=== PATIENT | female | born 1995 | race Hispanic/Latino ===

== ENCOUNTER 2016-12-10 22:20 | Emergency (ER) | payer MEDICAID, OTHER ==
[2016-12-10 22:50] LABS: #Eosinphils 0.1 thou/uL (0.0-0.7); #Lymphocytes 2.1 thou/uL (1.20-3.40); #Monocytes 0.5 thou/uL (0.11-0.59); #Neutrophils 5.6 thou/uL (1.40-6.50); %Basophils 0.4 % (0.0-1.0); %Eosinophils 1.1 % (0.0-10.0); %Lymphocytes 25.3 % (28.0-48.0); %Monocytes 5.8 % (0.0-4.0); Hematocrit 41.3 % (36.0-47.0); Red Blood Cell (RBC) Count 4.71 mill/uL (4.00-5.20); White Blood Cell (WBC) Count 8.3 thou/uL (4.8-10.8)
[2016-12-10 22:50] LABS: Bilirubin Negative (Negative); Blood, Urine Negative (Negative); Glucose, Urine (Dipstick) Negative (Negative); Ketone, Urine Negative (Negative); Nitrite Negative (Negative); Protein, Urine (Dipstick) Trace mg/dL (Neg-Trace)
[2016-12-10 22:55] LABS: Bacteria/HPF 4+ HPF (None Seen); RBC/HPF 0-3 HPF (0-3)
[2016-12-10 23:05] LABS: ALT (SGPT) 13 U/L (8-55); AST (SGOT) 14 U/L (5-34); Alkaline Phosphatase 111 U/L (40-150); Anion Gap 12 mmol/L (10-20); BUN (Urea Nitrogen) 11 mg/dL (7.0-18.7); Calc. Creatinine Clearance 0 mL/min (70-130); Calcium 9.2 mg/dL (7.8-10.44); Carbon Dioxide 24 mmol/L (22-29); Chloride 104 mmol/L (98-107); Estimated GFR-MDRD 85; Globulin 3.5 g/dL (2.4-3.5); Lipase 45 U/L (8-78); Protein, Total 7.5 g/dL (6.0-8.3)
[2016-12-10 23:07] LABS: Hyaline Casts/LPF 0-3 HYALINE CAST LPF (0-3 Hyaline)
--- NOTE | 2016-12-10 23:58 | ULT ---
GALLBLADDER ULTRASOUND: History: 21-year-old female with right upper quadrant pain for one day with nausea. FINDINGS: The gallbladder is contracted and mostly obscured, possibly related to physiologic contraction since the patient recent ate. Common bile duct 0.4 cm. No intrahepatic ductal dilatation. The visualized liver, pancreas, and right kidney are unremarkable. IMPRESSION: Small contracted gallbladder without overt gallstones, possibly of physiologic origin since the ava ent recently ate. If the patient has continued unexplained right upper quadrant pain, a follow up ul trasound examination after the patient has been NPO for at least 12 hours, might be a consideration. POS: JULITA
[2016-12-11] MEDS ORDERED: cefTRIAXone\\ROCEPHIN 1 GM VIAL ONE (00:02)
== END 2016-12-11 00:45 | disposition home or self-care (01) ==
LOC: ERS 22:20
DX: K29.70 Gastritis, unspecified, without bleeding (principal); N39.0 Urinary tract infection, site not specified
CPT/HCPCS: 36415; 76705; 80053; 81003; 81015; 81025; 83690; 85025; 96365; J0696

== ENCOUNTER 2017-01-10 21:44 | Emergency (ER) | payer OTHER, SELFPAY | END 2017-01-10 23:03 | disposition home or self-care (01) | LOC: ERS 21:44 | DX: J03.00 Acute streptococcal tonsillitis, unspecified (principal) | CPT/HCPCS: 87430; 99283 ==

== ENCOUNTER 2018-05-08 06:35 | Emergency (ER) | payer SELFPAY ==
[2018-05-08] MEDS ORDERED: Acetaminophen 500 MG TAB ONE (06:56)
[2018-05-08] MEDS ORDERED: Ketorolac Tromethamine 60 MG/2 ML VIAL ONE (07:42)
--- NOTE | 2018-05-08 07:52 | RAD ---
CHEST 2 VIEWS: Date: 05/08/09 HISTORY: Fever. COMPARISON: None. FINDINGS: Normal cardiac silhouette. Lungs and pleural spaces are clear. No pneumothorax or osseous abnormaliti es. IMPRESSION: No acute cardiopulmonary process. POS: CET
[2018-05-08 08:00] LABS: Bilirubin Moderate (Negative); Blood, Urine Large (Negative); Clarity CLOUDY (Clear); Glucose, Urine (Dipstick) Negative (Negative); Leukocyte Small (Negative); Nitrite Negative (Negative); Protein, Urine (Dipstick) 30 mg/dL (Neg-Trace)
[2018-05-08 08:01] LABS: Bacteria/HPF None Seen HPF (None Seen); RBC/HPF GREATER THAN 50-TNTC HPF (0-3)
[2018-05-08 08:15] LABS: Pathc Cast-AUWi Flag 6.97 (0-2.49)
[2018-05-08 08:16] LABS: Hyaline Casts/LPF 0-3 HYALINE CAST LPF (0-3 Hyaline); Renal Epithelial 0-3 HPF (0-3); Transitional Epithelial 0-3 HPF (0-3)
[2018-05-08 08:17] LABS: Manual Microscopic Reviewed? No Path Casts Seen; Pregnancy Test - Urine (BHCG) Negative (Negative); Pregu Control Background? CLEAR/WHITE (CLR/WHITE); Pregu Control Bar Appear? YES (CONTROL BAR)
== END 2018-05-08 08:54 | disposition home or self-care (01) ==
LOC: ERS 06:35
DX: J10.1 Influenza due to other identified influenza virus with other respiratory manifestations (principal)
CPT/HCPCS: 71046; 81003; 81015; 81025; 87804; 96372; J1885

== ENCOUNTER 2019-09-13 17:25 | Observation (INO) | payer OTHER, SELFPAY ==
[2019-09-13 18:00] LABS: #Basophils 0.1 thou/uL (0.0-0.2); #Eosinphils 0.1 thou/uL (0.0-0.7); #Lymphocytes 1.8 thou/uL (1.20-3.40); #Monocytes 0.6 thou/uL (0.11-0.59); #Neutrophils 6.5 thou/uL (1.40-6.50); %Basophils 0.7 % (0.0-1.0); %Eosinophils 0.8 % (0.0-10.0); %Lymphocytes 19.4 % (21.0-51.0); %Monocytes 6.8 % (0.0-10.0); %Neutrophils 72.4 % (42.0-75.0); Hemoglobin 13.5 g/dL (12.0-16.0); Mean Corpuscular HGB CONC 34.3 g/dL (32.0-36.0); Mean Corpuscular Volume 90.5 fL (78.0-98.0); Mean Platelet Volume 8.6 fL (7.4-10.4); Platelet Count 203 thou/uL (130-400); RBC Distribution Width 12.4 % (11.5-14.5); Red Blood Cell (RBC) Count 4.35 mill/uL (4.20-5.40)
[2019-09-13 19:06] LABS: Bilirubin Negative (Negative); Blood, Urine Large (Negative); Glucose, Urine (Dipstick) Negative (Negative); Ketone, Urine Trace mg/dL (Negative); Leukocyte Trace (Negative); Nitrite Negative (Negative); Protein, Urine (Dipstick) 100 mg/dL (Neg-Trace); Specific Gravity, Urine 1.025 (1.005-1.030); Urobilinogen 0.2 mg/dL (Less than 2); pH, Urine 5.5 (5.0-9.0)
[2019-09-13 19:12] LABS: Clarity Hazy (Clear)
[2019-09-13 19:14] LABS: RBC/HPF Greater than 50 HPF (0-3)
[2019-09-13 19:15] LABS: Bacteria/HPF 2+ HPF (None Seen)
--- NOTE | 2019-09-13 19:20 | ULT ---
Exam: Pelvic ultrasound HISTORY: Positive and vaginal bleeding for one day. Pelvic pain. COMPARISON: None TECHNIQUE: Multiple grayscale and color Doppler images were obtained in a transabdominal and transvag inal pelvic ultrasound. Spectral analysis of the Doppler waveforms of the ovaries were performed. FINDINGS: CERVIX: Not well visualized on this exam. UTERUS AND ENDOMETRIUM: There is a fluid collection seen within the endometrial canal which does not contain a pole or a yolk sac. Mean sac diameter is 1.27 cm which would correspond to a gestational age by ultrasound of 6 weeks and 1 day. RIGHT OVARY: Anechoic cystic lesion measuring 3.5 cm most compatible with a cyst. Arterial and venous flow is documented in the right ovary. LEFT OVARY: Normal flow, without focal mass. Small amount of free fluid is seen in the left adnexa. IMPRESSION: 1. Fluid collection within the endometrial canal. However, no pole or yolk sac is visualized at this time. Gestational age by mean sac diameter would be 6 weeks and 1 day. At least a yolk sac should be visualized at this time. However, findings could be related to an early intrauterine gestat ion. Pseudogestational sac related to ectopic cannot be excluded based on this exam. Follow-up ultrasound examination in one week as well as correlation with quantitative beta hCG level is recommended. 2. Right ovarian cyst. 3. Small amount of free fluid in the left adnexa.
[2019-09-13 21:51] VITALS: BMI 30.2
[2019-09-13] MEDS ORDERED: Zolpidem Tartrate 5 MG TAB PO PRN (22:06)
[2019-09-13] MEDS ORDERED: Ondansetron ODT 4 MG TAB PO PRN (22:06)
[2019-09-13] MEDS ORDERED: Acetaminophen 325 MG TAB PO PRN (22:06)
[2019-09-13] MEDS: Sodium Chloride 0.9% 1,000 ML IV SCH (22:34)
--- NOTE | 2019-09-14 05:49 | HP ---
REASON FOR ADMISSION: Rule out ectopic, low probability by history, exam, ultrasound study, and objective findings. HISTORY OF PRESENT ILLNESS: Ms. Kruger is a 23-year-old 2, para 1, who is approximately 7 weeks gestation by stated LMP. She presents with a small amount of bleeding and cramping today. She reports 2 weeks of intermittent lower abdominal pain that goes from right to left, to center, back to right, back to left, and back to center. She denies nausea or vomiting. She denies passage of tissue. She was seen in the emergency room and noted to have a normal hematocrit, a beta-HCG of 2400, rather unremarkable non clean-catch urine, and vitals that include a pulse in the 80s to low 90s with systolics in the 90s and diastolics in the 60s. Ultrasound was read equivocally by Radiology as a fluid collection within the endometrial canal, which did not contain a pole or yolk sac. Mean sac diameter is 1.27 cm which would correspond with gestational age of 6 weeks and 1 day, a simple cyst in the right adnexum with good flow, normal left adnexum with a small amount of free fluid around it. the radiologist's statement felt that pseudogestational sac related ectopic cannot be excluded based on this exam, and of course, the patient's beta-hCG does not exclude this as well. SAND MILLER HISTORY: x1 with Tatiana Hough. 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 Hough performed a laparoscopy. Apparently, it was torsed and the patient ended up with a right salpingectomy. She denies a history of sexually transmitted diseases. PAST MEDICAL HISTORY: None. PAST SURGICAL HISTORY: Laparoscopy. ALLERGIES: NONE. MEDICATIONS: None. SOCIAL HISTORY: Denies tobacco, alcohol, or drug abuse. FAMILY HISTORY: Noncontributory. REVIEW OF SYSTEMS: Noncontributory. PHYSICAL EXAMINATION: GENERAL: female. VITAL SIGNS: Temperature 98.2, pulse 90, respirations 18, blood pressure 92/ 60. HEENT: Within normal limits. LUNGS: Clear to auscultation bilaterally. HEART: Regular rate and rhythm. ABDOMEN: Soft and nontender with bowel sounds in all 4 quadrants. No rebound. No guarding. No CVA tenderness noted. PELVIC: Exam performed by CRUZ in the ER revealed a small amount of blood. No open os. No tissue. EXTREMITIES: No clubbing, cyanosis, or edema. LABORATORY DATA: Hematocrit of 39%, white count 9000, platelet count of 203. Beta-hCG 2477. Urinalysis had some blood in it, trace leuk esterase, few WBCs, was rather unremarkable. I reviewed the ultrasound pictures myself. Ultrasound reveals a double-ring gestational sac in the uterine fundus, no abnormality of the endocervical canal is noted on the exam by myself. I am very uncertain as to what was noted to be in the endocervical canal is definitely fundal in placement. The gestational sac that may be collapsing with its irregular shape. She also has a simple cyst in the right adnexum measures 3-1/2 cm in greatest diameter. There is no complexity to it. Doppler flow of right and left adnexa looks normal on my scanning of images and there is nothing other than physiological fluid noted around either adnexa. IMPRESSION: Possible normal early gestation versus threatened, missed AB versus ectopic . PLAN: Discussed with the ER physician. The patient is inappropriate at this gestational age with this beta-HCG level for methotrexate administration as this certainly could be a normal . Because of concern for possible ectopic as well as the patient's unattached obstetric status with [facility], we will admit the patient overnight with serial vital signs, serial hematocrits, serial HCGs, and perhaps a repeat ultrasound tomorrow for further evaluation. We will check urine for urine culture. Job ID: [id number] MTDD
[2019-09-14 05:57] LABS: #Basophils 0.1 thou/uL (0.0-0.2); #Eosinphils 0.1 thou/uL (0.0-0.7); #Lymphocytes 2.2 thou/uL (1.20-3.40); #Monocytes 0.5 thou/uL (0.11-0.59); #Neutrophils 4.8 thou/uL (1.40-6.50); %Eosinophils 0.8 % (0.0-10.0); %Lymphocytes 29.2 % (21.0-51.0); %Monocytes 6.6 % (0.0-10.0); %Neutrophils 62.5 % (42.0-75.0); Hemoglobin 12.2 g/dL (12.0-16.0); Mean Corpuscular HGB CONC 33.3 g/dL (32.0-36.0); Mean Corpuscular Hemoglobin 30.2 pg (27.0-31.0); Mean Corpuscular Volume 90.8 fL (78.0-98.0); Mean Platelet Volume 8.6 fL (7.4-10.4); Platelet Count 182 thou/uL (130-400); RBC Distribution Width 12.4 % (11.5-14.5); Red Blood Cell (RBC) Count 4.05 mill/uL (4.20-5.40); White Blood Cell (WBC) Count 7.6 thou/uL (4.8-10.8)
--- NOTE | 2019-09-14 08:23 | PRG ---
DATE OF SERVICE: 09/14/2019 TIME OF SERVICE: 0715 hours. SUBJECTIVE: Ms. Kruger is hospital day #1 admission to rule out ectopic versus missed/threatened AB. She is resting comfortably, reports that she still has mild midline cramping and a small amount of bleeding. She is ambulated to the bathroom several times without syncope or dizziness. OBJECTIVE: VITAL SIGNS: Temperature 98.6, T-max 98.6, pulse 80, respirations 18, and blood pressure 88/53. Of note, the patient's blood pressure has remained in the 80s to 90s systolic and 50s diastolic since admission. LUNGS: Clear to auscultation bilaterally. HEART: Regular rate and rhythm. ABDOMEN: Soft. No rebound. No guarding. She has discomfort with midline palpation. PELVIC: Deferred. EXTREMITIES: Without clubbing, cyanosis, or edema. LABORATORY DATA: The patient had a repeat hematocrit this morning. Hematocrit prehydration was 39.3 with admission and IV rehydration, her hematocrit dropped to 36.8. White count is normal. Platelet count is normal. The patient has a pending beta-hCG. Beta-hCG at 1800 hours yesterday was 2477. IMPRESSION: Likely missed/threatened AB, although early normal or ectopic cannot be completely ruled out. PLAN: Repeat beta-hCG at noon today. We will continue to follow the patient clinically. The patient's clinical presentation is consistent with threatened AB, no evidence of intraperitoneal hemorrhage and physiologic hypotension without pulse response that would indicate intraabdominal hemorrhage. Follow up the beta-hCG and we will check the patient out to Dr. Ashlyn Thomas. May or may not be indication for repeat ultrasound. Job ID: [id number]
[2019-09-14] MEDS: Sodium Chloride 0.9% 1,000 ML IV SCH (08:40)
[2019-09-14 11:30] VITALS: BP 98/57; TEMP 98.3
--- NOTE | 2019-09-14 15:47 | DIS ---
DATE OF ADMISSION: 09/13/2019 DATE OF DISCHARGE: 09/14/2019 DIAGNOSIS: Likely spontaneous . PROCEDURES: Transvaginal ultrasound. HOSPITAL COURSE: The patient was admitted on 09/13/2019 for serial labs and exams to rule out ectopic. The patient initially had presented to the emergency department with spotting and lower abdominal cramping. She was found to have what looks like a gestational sac in the fundus of the uterus, but it was not definitive. Her vitals remained stable throughout her stay. Her hCG level on admission was 2477, less than 24 hours later was 1877, which was more than 25% drop. The patient reported that her cramping was improving, but she still had some spotting. Given the dramatic drop in hCG, it is more consistent with early loss rather than an ectopic . The patient will be discharged and will follow up in 2 days at Clinic for repeat labs and exam. She will be discharged home with precautions. FOLLOWUP: Clinic in 2 days. DIET: Regular. ACTIVITIES: As tolerated. INSTRUCTIONS: Call or return for severe abdominal pain, heavy vaginal bleeding, or other concerns. Job ID: [id number]
== END 2019-09-14 15:35 | disposition home or self-care (01) ==
LOC: ERS 17:25 → 3SW 19:56
PROVIDERS: ADMIT Obstetrics & Gynecology; ATTEND Obstetrics & Gynecology
DX: O26.851 Spotting complicating pregnancy, first trimester (principal); O99.89 Other specified diseases and conditions complicating pregnancy, childbirth and the puerperium; R10.30 Lower abdominal pain, unspecified; O34.81 Maternal care for other abnormalities of pelvic organs, first trimester; N83.291 Other ovarian cyst, right side; Z3A.01 Less than 8 weeks gestation of pregnancy
CPT/HCPCS: 36415; 76856; 81003; 81015; 84702; 85025; 86850; 86900; 86901; 87086; 96360; 96361; G0378

== ENCOUNTER 2019-11-09 14:12 | Emergency (ER) | payer OTHER ==
[2019-11-09] MEDS ORDERED: Ondansetron PF 4 MG/2 ML Vial ONE (14:33)
[2019-11-09 14:51] LABS: #Lymphocytes 1.5 thou/uL (1.20-3.40); #Monocytes 0.5 thou/uL (0.11-0.59); #Neutrophils 5.6 thou/uL (1.40-6.50); %Basophils 0.4 % (0.0-1.0); %Eosinophils 0.4 % (0.0-10.0); %Lymphocytes 19.3 % (21.0-51.0); %Monocytes 6.5 % (0.0-10.0); %Neutrophils 73.4 % (42.0-75.0); Hemoglobin 12.7 g/dL (12.0-16.0); Mean Corpuscular HGB CONC 34.5 g/dL (32.0-36.0); Mean Corpuscular Hemoglobin 30.4 pg (27.0-31.0); Mean Corpuscular Volume 88.2 fL (78.0-98.0); Mean Platelet Volume 8.8 fL (7.4-10.4); Platelet Count 188 thou/uL (130-400); RBC Distribution Width 12.9 % (11.5-14.5); Red Blood Cell (RBC) Count 4.17 mill/uL (4.20-5.40); White Blood Cell (WBC) Count 7.6 thou/uL (4.8-10.8)
[2019-11-09 15:08] LABS: Bacteria/HPF 2+ HPF (None Seen); Bilirubin Negative (Negative); Blood, Urine Negative (Negative); Clarity Turbid (Clear); Glucose, Urine (Dipstick) Normal (Negative); Ketone, Urine Negative (Negative); Leukocyte 500 Leu/uL (Negative); Nitrite Negative (Negative); Protein, Urine (Dipstick) 50 mg/dL (Neg-Trace); Specific Gravity, Urine 1.035 (1.002-1.036); WBC/HPF 21-50 HPF (0-3); pH, Urine 7.5 (5.0-9.0)
[2019-11-09 15:11] LABS: ALT (SGPT) 8 U/L (8-55); AST (SGOT) 13 U/L (5-34); Alkaline Phosphatase 52 U/L (40-110); Anion Gap 14 mmol/L (10-20); BUN (Urea Nitrogen) 10 mg/dL (7.0-18.7); Calc. Creatinine Clearance 0 mL/min (70-130); Carbon Dioxide 21 mmol/L (22-29); Chloride 106 mmol/L (98-107); Estimated GFR-MDRD Greater than 90; Globulin 3.2 g/dL (2.4-3.5); Glucose 84 mg/dL (70-105); Potassium 3.5 mmol/L (3.5-5.1); Protein, Total 7.2 g/dL (6.0-8.3); Sodium 137 mmol/L (136-145)
[2019-11-09] MEDS ORDERED: diphenhydrAMINE 50 MG/ML VIAL ONE (15:49)
[2019-11-09] MEDS ORDERED: Metoclopramide HCl 10 MG/2 ML VIAL ONE (15:49)
== END 2019-11-09 16:28 | disposition home or self-care (01) ==
LOC: ERS 14:12
DX: O23.41 Unspecified infection of urinary tract in pregnancy, first trimester (principal); O21.9 Vomiting of pregnancy, unspecified; O99.341 Other mental disorders complicating pregnancy, first trimester; F41.9 Anxiety disorder, unspecified; Z3A.08 8 weeks gestation of pregnancy
CPT/HCPCS: 80053; 81003; 81015; 84702; 85025; 94760; 96361; 96365; 96375; J1200; J2405; J2765

== ENCOUNTER 2020-01-14 19:23 | Observation (INO) | payer OTHER ==
[2020-01-14] MEDS ORDERED: Ondansetron ODT 4 MG TAB PO PRN (21:33)
[2020-01-14] MEDS ORDERED: Ondansetron PF 4 MG/2 ML Vial IVP PRN (21:33)
--- NOTE | 2020-01-14 21:54 | PDOC.FPRHP ---
- History of Present Illness Chief Complaint: nausea, headache History of Present Illness: 24 yo at 16.5wks direct admission from [facility] complaining of nausea and headache. Patient explains she has had decreased appetite, decreased oral intake, nausea and vomiting since the onset of . She has noticed very m ild improvement the last week or two. Reports vomiting every time she eats or drinks, most recently 2-3 times per day. 2-3 times per week she will notice 1-2 small specs of blood in the vomit. She reports a 10 pound weight loss since the beginning of her . Patient reports a frontal headache for the past 3 days that is constant, blurred vision at rest, dizziness upon standing, dyspnea on exertion, and constipation. Also complains of lower abdominal pain on her right side that comes and goes for the past 2-3 days. Her last bowel movement was one week ago. She denies CP or dysuria. - Allergies/Adverse Reactions Allergies Allergy/AdvReac Type Severity Reaction Status Date / Time No Known Drug Allergies Allergy Verified 09/14/19 00:46 - Home Medications Medication Instructions Recorded Confirmed Type Pnv95/Iron Fum/Folic Acid 1 each PO DAILY 08/11/15 01/15/20 History [ Caplet] HYDROcodone Bit/APAP 5/325 [Dighton] 1 tab PO Q4H PRN #0 tab 08/12/15 01/15/20 Rx Acetaminophen [Tylenol Regular 650 mg PO Q4H PRN tab 09/14/19 01/15/20 Rx Strength] - History PMHx: None PSHx: R sided salpingectomy FHx: maternal uncle-DM Social: denies tobacco, alcohol, or drug use - Review of Systems General: denies: fever/chills Eyes: reports: vision changes ENT: denies: nasal congestion, rhinorrhea Respiratory: reports: shortness of breath. denies: cough, congestion Cardiovascular: denies: chest pain, palpitation, edema Gastrointestinal: reports: nausea, vomiting, constipation, abdominal pain. denies: diarrhea Genitourinary: denies: dysuria Skin: denies: rashes, itching Musculoskeletal: denies: tenderness Neurological: reports: weakness. denies: syncope - Vital signs BP: 99/54 HR: 75 RR: 16 Tmax: 98.1 Pox: 100% on RA Wt: 70kg - Physical Exam Constitutional: NAD HEENT: normocephalic and atraumatic, EOMI, no scleral icterus, grossly normal vision, grossly normal hearing Neck: supple, FROM Heart: RRR, no murmurs/rubs/gallops Lungs: CTAB, no respiratory distress, no wheezing Abdomen: soft, non-tender Musculoskeletal: normal structure, ROM grossly normal Neurological: no focal deficit Skin: no rash/lesions Psychiatric: normal mood and affect, good judgment and insight, intact recent and remote memory FMR H&P: Results - Labs Result Diagrams: 01/15/20 06:05 01/15/20 06:05 FMR H&P: A/P - Plan 24 yo at 16.5 wks complaining of nausea and headache Hyperemesis Gravidum -2L LR at 500mL/hr -thiamine -after completion of LR, switch to 1/2 NS D5 w/KCL at 150mL/hr -zofran and phenergen prn for nausea -NPO -CBC, CMP, TSH, Mg, Phos, UA pending sIUP -Patient reports normal checks so far and denies any complications -Will get records for [facility] in AM PCP: [facility] Code: FULL Dispo: eLOS <48 hours pending fluid resuscitation FMR H&P: Upper Level - Plan Date/Time: 01/14/202153 INeri DO, have evaluated this patient and agree with findings/plan as outlined by pharmacy grad intern resident. Pertinent changes/additions are listed here. 24 yo 16.5 wk sIUP wo sig pmhx n/v since , weight loss of 11lbs vomiting 2-3 times a day with failure of outpt emetics, poor po tolerance. she reports some pre-syncope and fatigue, denies chest pain, vb/d, or dysuria. routine pnc at this point. on my exam she is dry appearing, lungs ctab, heart rrr w/o murmur, abdomen nttp. hyperemesis gravidarum, will obtain labs and IVF rescus, iv anti-emetics. given thiamine now, replace lytes pending labs. admit to pp for monitoring. consider promethazine/steroids if not improved after initial interventions. unlikely secondary cause to HG, UA pending. Addendum - Attending - Attending Attestation Date/Time: 01/15/20 0708 I personally evaluated the patient and discussed the management with Dr. Ant virgen/Aashish. I agree with the History, Examination, Assessment and Plan documented above with any addition or exceptions noted below. see my event note for details.
[2020-01-14 22:11] VITALS: BMI 27.3
[2020-01-14] MEDS: Lactated Ringer's 1,000 ML IV SCH (22:23)
[2020-01-14 22:42] LABS: #Lymphocytes 1.3 thou/uL (1.20-3.40); #Monocytes 0.3 thou/uL (0.11-0.59); %Basophils 0.4 % (0.0-1.0); %Eosinophils 0.4 % (0.0-10.0); %Lymphocytes 19.6 % (21.0-51.0); %Monocytes 4.8 % (0.0-10.0); %Neutrophils 74.9 % (42.0-75.0); Hemoglobin 11.1 g/dL (12.0-16.0); Mean Corpuscular HGB CONC 34.9 g/dL (32.0-36.0); Mean Corpuscular Hemoglobin 31.7 pg (27.0-31.0); Mean Corpuscular Volume 90.8 fL (78.0-98.0); Mean Platelet Volume 8.7 fL (7.4-10.4); Platelet Count 138 thou/uL (130-400); RBC Distribution Width 13.6 % (11.5-14.5); Red Blood Cell (RBC) Count 3.51 mill/uL (4.20-5.40); White Blood Cell (WBC) Count 6.6 thou/uL (4.8-10.8)
[2020-01-14 23:04] LABS: ALT (SGPT) 9 U/L (8-55); AST (SGOT) 11 U/L (5-34); Albumin 3.1 g/dL (3.5-5.0); Alkaline Phosphatase 41 U/L (40-110); Anion Gap 11 mmol/L (10-20); BUN (Urea Nitrogen) 7 mg/dL (7.0-18.7); Bilirubin, Total 0.8 mg/dL (0.2-1.2); Calc. Creatinine Clearance 164 mL/min (70-130); Calcium 8.6 mg/dL (7.8-10.44); Carbon Dioxide 21 mmol/L (22-29); Chloride 107 mmol/L (98-107); Estimated GFR-MDRD Greater than 90; Globulin 2.8 g/dL (2.4-3.5); Glucose 112 mg/dL (70-105); Magnesium 1.6 mg/dL (1.6-2.6); Phosphorus 2.9 mg/dL (2.3-4.7); Potassium 3.4 mmol/L (3.5-5.1); Protein, Total 5.9 g/dL (6.0-8.3); Sodium 136 mmol/L (136-145)
[2020-01-14] MEDS ORDERED: Promethazine 25 MG TAB PO PRN (23:24)
[2020-01-14] MEDS ORDERED: Promethazine HCl 25 MG in Sodium Chloride 0.9% 50 ML IVPB PRN (23:24)
[2020-01-14] MEDS ORDERED: Promethazine HCl 25 MG SUPP PR PRN (23:24)
--- NOTE | 2020-01-15 00:18 | PDOC.EVN ---
Event Note - Event Note Event Note: Case discussed w/ Dr. Zendejas/Fariba. Agree with their H&P unless otherwise stated in the following attestation. 24 yo at 16.5 wk by 12.3 wk US (EDC 06/25/20). Direct admit from [facility] for several week hx of severe nausea/vomiting and a 10-11 lb weight loss since the start of her . She has been unable to keep any thing down PO for several days now. States she has N/V in last but to a lesser degree. Exam remarkable for dry MM. Observation for hyperemesis gravidarum. IV fluids, check electrolytes, PRN zofran and phenegran. Start B6 and unisom.
[2020-01-15] MEDS ORDERED: Magnesium 2 GM/50 ML 2 GM in Premix Bag 1 BAG IVPB SCH (00:45)
[2020-01-15] MEDS ORDERED: Doxylamine 25 MG TAB PO SCH ×2 (00:45→21:00)
[2020-01-15] MEDS ORDERED: pyridOXINE 50 MG (B6) TAB PO SCH ×2 (00:45→09:00)
[2020-01-15] MEDS: Lactated Ringer's 1,000 ML IV SCH (03:24)
[2020-01-15 04:01] LABS: Bilirubin Negative (Negative); Blood, Urine Negative (Negative); Glucose, Urine (Dipstick) Negative (Negative); Ketone, Urine 15 mg/dL (Negative); Leukocyte Negative (Negative); Nitrite Negative (Negative); Protein, Urine (Dipstick) Negative (Neg-Trace); Urobilinogen 0.2 mg/dL (Less than 2)
[2020-01-15 04:40] LABS: Clarity Clear (Clear)
[2020-01-15 04:42] LABS: Specific Gravity, Urine 1.003 (1.005-1.030)
[2020-01-15 06:25] LABS: #Eosinphils 0.1 thou/uL (0.0-0.7); #Lymphocytes 1.7 thou/uL (1.20-3.40); #Monocytes 0.3 thou/uL (0.11-0.59); #Neutrophils 4.5 thou/uL (1.40-6.50); %Basophils 0.4 % (0.0-1.0); %Eosinophils 0.8 % (0.0-10.0); %Lymphocytes 25.7 % (21.0-51.0); %Monocytes 4.9 % (0.0-10.0); %Neutrophils 68.2 % (42.0-75.0); Hemoglobin 10.8 g/dL (12.0-16.0); Mean Corpuscular HGB CONC 35.1 g/dL (32.0-36.0); Mean Corpuscular Hemoglobin 32.2 pg (27.0-31.0); Mean Corpuscular Volume 91.7 fL (78.0-98.0); Mean Platelet Volume 8.7 fL (7.4-10.4); Platelet Count 132 thou/uL (130-400); RBC Distribution Width 13.3 % (11.5-14.5); Red Blood Cell (RBC) Count 3.35 mill/uL (4.20-5.40); White Blood Cell (WBC) Count 6.5 thou/uL (4.8-10.8)
[2020-01-15 06:44] LABS: ALT (SGPT) 11 U/L (8-55); AST (SGOT) 11 U/L (5-34); Alkaline Phosphatase 41 U/L (40-110); Anion Gap 11 mmol/L (10-20); BUN (Urea Nitrogen) 5 mg/dL (7.0-18.7); Calc. Creatinine Clearance 169 mL/min (70-130); Calcium 8.5 mg/dL (7.8-10.44); Carbon Dioxide 22 mmol/L (22-29); Chloride 105 mmol/L (98-107); Estimated GFR-MDRD Greater than 90; Globulin 2.7 g/dL (2.4-3.5); Glucose 63 mg/dL (70-105); Potassium 3.4 mmol/L (3.5-5.1); Protein, Total 5.7 g/dL (6.0-8.3); Sodium 135 mmol/L (136-145)
--- NOTE | 2020-01-15 06:56 | PDOC.FM ---
- Subjective Subjective: No acute overnight events. Continues to feel nauseated. Tolerating small sips of water only this AM. Not dizzy upon sitting up, has not been out of bed to ambulate. Denies vomiting since admission, on zofran. No abdominal pain although endorses R side soreness. Denies urinary symptoms. No BM for 3-4 days. Has not been eating or drinking well for 3-4 days. Headache is improving. - Objective Vital Signs & Weight: Vital Signs (12 hours) Temp Pulse Resp BP BP 01/15/20 05:55 98.5 F 71 16 92/50 L 01/15/20 00:05 98.4 F 87 15 90/50 L 01/14/20 19:10 98.1 F 75 16 99/54 L Weight Weight 69.853 kg I&O: 01/13/20 01/14/20 01/15/20 06:59 06:59 06:59 Intake Total 2152 Balance 2152 Result Diagrams: 01/15/20 06:05 01/15/20 06:05 Phys Exam - Physical Examination Constitutional: NAD HEENT: moist MMs, sclera anicteric Neck: supple Respiratory: no wheezing, no rales, no rhonchi, clear to auscultation bilateral Cardiovascular: no significant murmur mild tachycardia Gastrointestinal: soft, non-tender, no distention, positive bowel sounds Musculoskeletal: no edema, pulses present Neurological: non-focal, moves all 4 limbs Psychiatric: normal affect, A&O x 3 Skin: no rash Dx/Plan - Plan Plan: 24 yo at 16.5 wks complaining of nausea and headache Hyperemesis Gravidum Given 2L LR at 500mL/hr, now on LR @ 120 cc/h -thiamine -zofran and phenergen prn for nausea -NPO -Labs wnl except as noted below sIUP -Patient reports normal checks so far and denies any complications -Will get records for [facility] in AM Normocytic Anemia in Hgb 10.8 this AM, slightly down from admission likely 2/2 hemodilution with IV fluids. - continue to monitor - may need iron supplementation when tolerating PO intake - check iron studies Hypokalemia Mild, 3.4. Will replete when tolerating PO intake. PCP: [facility] Code: FULL Dispo: eLOS <48 hours pending fluid resuscitation Addendum - Attending - Attending Attestation Date/Time: 01/15/20 [id number] I personally evaluated the patient and discussed the management with resident team I agree with the History, Examination, Assessment and Plan documented above with any addition or exceptions noted below. Patient improving with scheduled medications. Will make some minor changes to regiment due to some persistent nausea. Lena promethazine CT q 8 hours and will add Remoron qhs to help also with appetite. Able to tolerate some of breakfast this AM. Will re-evaluate at 1600. Tonio
[2020-01-15] MEDS ORDERED: Lactated Ringer's 1,000 ML IV SCH (07:00)
[2020-01-15] MEDS ORDERED: Sodium Chloride 0.9% 20 ML ONE (07:48)
[2020-01-15] MEDS ORDERED: Prenatal Vitamin 1 TAB PO SCH (09:00)
[2020-01-15] MEDS ORDERED: Ondansetron ODT 4 MG TAB PO SCH (12:00)
[2020-01-15] MEDS ORDERED: Acetaminophen 500 MG TAB PO PRN (12:51)
[2020-01-15] MEDS ORDERED: Mirtazapine 15 MG TAB PO SCH (13:00)
[2020-01-15] MEDS ORDERED: Promethazine HCl 25 MG SUPP PR SCH (14:00)
[2020-01-15 16:21] VITALS: TEMP 98.7
[2020-01-15 16:53] VITALS: BP 89/54
[2020-01-15 17:49] LABS: SARS-CoV-2 MS2 Positive; SARS-CoV-2 N Gene Positive; SARS-CoV-2 S Gene Positive; SARS-CoV-2 by NAA DETECTED (NotDetected); SARS-CoV-2 orf1ab Positive
[2020-01-16] MEDS ORDERED: Mirtazapine 15 MG TAB PO SCH (21:00)
--- NOTE | 2020-01-18 09:00 | DIS ---
DATE OF ADMISSION: 01/14/2020 DATE OF DISCHARGE: 01/15/2020 ADMITTING ATTENDING: Jeronimo Robledo MD DISCHARGE ATTENDING: Emi Giang MD RESIDENT: Leanne Powell DO CONSULTS: None. PROCEDURES: None. PRIMARY DIAGNOSIS: Hyperemesis gravidarum. SECONDARY DIAGNOSES: Single intrauterine , normocytic anemia, hypokalemia, COVID positive. DISCHARGE MEDICATIONS: 1. Tylenol 650 mg p.o. q.4 hours p.r.n. 2. vitamin 1 tab p.o. daily. 3. Mirtazapine 15 mg p.o. at bedtime. 4. Unisom 25 mg p.o. at bedtime. 5. Pyridoxine 25 mg p.o. b.i.d. 6. Zofran 4 mg p.o. q.6 hours. 7. Omeprazole 20 mg p.o. daily p.r.n. 8. Promethazine 25 mg per rectum q.8 hours p.r.n. Discontinued medications: 1. caplet. 2. Hydrocodone 5/325. HISTORY OF PRESENT ILLNESS/HOSPITAL COURSE: This is a 24-year-old, G3, P1-0-1-1, at 16.5 weeks of , who was brought to the hospital as a direct admission from the clinic for symptoms of nausea, headache, dizziness, inability to tolerate p.o. intake with associated history of frequent nausea and vomiting since the beginning of and a 10-pound weight loss since she began in September. On admission, she was fluid resuscitated with 2 L of lactated Ringer's and then switched to lactated Ringer's at 120 cc/h. She was started on thiamine, Zofran, and Phenergan to control her nausea and kept n.p.o. until she was able to tolerate small amount of food. With treatment of her nausea, she was able to tolerate p.o. intake, and her borderline blood pressures resolved. She was prepared for discharge. Upon discharge, it was noted that her admission screen for COVID returned positive. She was otherwise asymptomatic and was instructed to quarantine at home for 14 days. Labs during this admission included a CBC revealing a hemoglobin of 10.8. This is likely normocytic anemia of , particularly after hemodilution with IV fluids. However, she may need to have this continued to be monitored in the outpatient setting to see if she will require iron supplementation. DISPOSITION: Stable. DISCHARGE INSTRUCTIONS: 1. Location: Home. 2. Diet: As tolerated. 3. Activity: As tolerated. Instructed to quarantine at home for 14 days due to positive COVID screen. 4. Follow up with your provider at the clinic within the next one week. Job ID: [id number] MTDD
== END 2020-01-15 17:50 | disposition home health service (06) ==
LOC: INTOOBSV 20:18 → 3SW 20:18
PROVIDERS: ADMIT Emergency Medicine; ATTEND Emergency Medicine
DX: O98.512 Other viral diseases complicating pregnancy, second trimester (principal); U07.1 COVID-19; O21.0 Mild hyperemesis gravidarum; O99.012 Anemia complicating pregnancy, second trimester; D64.9 Anemia, unspecified; O99.891 Other specified diseases and conditions complicating pregnancy; R51.9 Headache, unspecified; Z3A.16 16 weeks gestation of pregnancy
CPT/HCPCS: 36415; 80053; 81001; 83735; 84100; 84443; 85025; 87635; 96365; 96367; 96375; G0378; J2405; J3411; J3475; Q0162; U0003

== ENCOUNTER 2021-02-15 16:23 | Emergency (ER) | payer OTHER, MEDICAID ==
[2021-02-15] MEDS ORDERED: Acetaminophen 500 MG TAB ONE (18:19)
[2021-02-15] MEDS ORDERED: Ibuprofen 200 MG TAB ONE ×2 (18:19→18:20)
== END 2021-02-15 18:22 | disposition home or self-care (01) ==
LOC: ERS 16:23
DX: H66.92 Otitis media, unspecified, left ear (principal)
CPT/HCPCS: 99282

== ENCOUNTER 2023-08-25 00:41 | Observation (INO) | payer OTHER, SELFPAY ==
[2023-08-25 01:58] LABS: #Basophils Less than 0.03 10x3/uL (0.0-0.2); %Basophils 0.2 % (0.0-1.0); %Eosinophils 0.4 % (0.0-10.0); %Lymphocytes 12.1 % (21.0-51.0); %Monocytes 6.7 % (0.0-10.0); %Neutrophils 80.5 % (42.0-75.0); Hemoglobin 11.8 g/dL (12.0-16.0); Mean Corpuscular HGB CONC 32.8 g/dL (32.0-36.0); Mean Corpuscular Hemoglobin 27.5 pg (27.0-31.0); Mean Corpuscular Volume 83.9 fL (78.0-98.0); Mean Platelet Volume 11.6 fL (7.4-10.4); Platelet Count 224 10x3/uL (130-400); RBC Distribution Width 14.4 % (11.5-14.5); Red Blood Cell (RBC) Count 4.29 mill/uL (4.20-5.40)
[2023-08-25 02:41] LABS: Anion Gap 13 mmol/L (10-20); BUN (Urea Nitrogen) 8 mg/dL (7.0-18.7); Calc. Creatinine Clearance 0 mL/min (70-130); Carbon Dioxide 20 mmol/L (22-29); Chloride 108 mmol/L (98-107); Potassium 3.5 mmol/L (3.5-5.1); Sodium 137 mmol/L (136-145)
[2023-08-25 02:42] LABS: ALT (SGPT) 19 U/L (8-55); AST (SGOT) 17 U/L (5-34); Albumin 3.4 g/dL (3.5-5.0); Alkaline Phosphatase 51 U/L (40-110); Bilirubin, Total 0.7 mg/dL (0.2-1.2); Estimated GFR 111; Globulin 3.6 g/dL (2.4-3.5); Glucose 92 mg/dL (70-105)
[2023-08-25 02:47] LABS: Bacteria/HPF 2+ HPF (None Seen); Bilirubin Negative (Negative); Blood, Urine Negative (Negative); CAUTI Indications for Culture Pelvic or flank pain; Clarity Turbid (Clear); Glucose, Urine (Dipstick) Normal (Negative); Ketone, Urine Negative (Negative); Leukocyte 500 Leu/uL (Negative); Nitrite Negative (Negative); Protein, Urine (Dipstick) 70 mg/dL (Neg-Trace); Specific Gravity, Urine 1.027 (1.002-1.036); pH, Urine 7.5 (5.0-9.0)
[2023-08-25 02:48] LABS: Pregnancy Test - Urine (BHCG) Negative (Negative); Pregu Control Background? CLEAR/WHITE (CLR/WHITE); Pregu Control Bar Appear? YES (CONTROL BAR); Specific Gravity 1.027 (1.002-1.036); Urine Culture Reflex No No
[2023-08-25] MEDS ORDERED: Morphine 4 MG/ML VIAL ONE (04:23)
[2023-08-25] MEDS ORDERED: Ondansetron PF 4 MG/2 ML Vial ONE (04:23)
[2023-08-25 04:54] LABS: Lipase 50 U/L (8-78); Magnesium 1.8 mg/dL (1.6-2.6)
[2023-08-25 04:59] LABS: Troponin I Less than 0.010 ng/mL (< 0.028)
[2023-08-25] MEDS ORDERED: cefTRIAXone (ROCEPHIN) 2 GM VIAL ONE (04:59)
[2023-08-25] MEDS ORDERED: fentaNYL 50 mcg/mL 1 mL Vial ONE (06:17)
[2023-08-25] MEDS ORDERED: Enoxaparin 40 MG (0.4 mL) SYRINGE ONE (07:26)
[2023-08-25] MEDS ORDERED: Enoxaparin 30 MG (0.3 mL) SYRINGE ONE (07:26)
[2023-08-25] MEDS ORDERED: Ondansetron PF 4 MG/2 ML Vial IVP PRN (08:22)
[2023-08-25] MEDS ORDERED: Ondansetron ODT 4 MG TAB PO PRN (08:22)
[2023-08-25] MEDS ORDERED: Calcium Carbonate 500 MG ChewTAB PO PRN (08:22)
[2023-08-25] MEDS ORDERED: Morphine 2 MG/ML VIAL ONE (08:25)
[2023-08-25] MEDS ORDERED: Polyethylene Glycol 3350 17 GM Packet PO PRN (08:25)
[2023-08-25] MEDS: Morphine 2 MG/ML VIAL SLOW IVP PRN (08:30)
[2023-08-25 08:31] VITALS: BMI 29.2
[2023-08-25] MEDS ORDERED: Magnesium 2 GM/50 ML(in water) 2 GM in Premix 1 BAG IVPB SCH (08:45)
[2023-08-25] MEDS ORDERED: Iopamidol 370 76% 100 ML VIAL ONE (09:01)
[2023-08-25] MEDS: Enoxaparin 80 MG (0.8 mL) SYRINGE SC SCH (09:47)
[2023-08-25] MEDS ORDERED: Potassium Chloride 20 MEQ TAB ONE (09:52)
[2023-08-25] MEDS ORDERED: predniSONE 20 MG TAB ONE (09:53)
[2023-08-25] MEDS ORDERED: Senokot S 8.6-50 MG TAB ONE (09:53)
[2023-08-25] MEDS ORDERED: Famotidine 20 MG TAB ONE (09:53)
[2023-08-25] MEDS ORDERED: NS 0.9% w/ 20 MEQ KCL 1,000 ML ONE (09:54)
[2023-08-25] MEDS: Famotidine 20 MG TAB PO SCH (09:58)
[2023-08-25] MEDS: predniSONE 20 MG TAB PO SCH (09:58)
[2023-08-25] MEDS: NS 0.9% w/ 20 MEQ KCL 1,000 ML/1,000 ML BAG IV SCH (09:58)
[2023-08-25] MEDS: Potassium Chloride 20 MEQ TAB PO SCH (09:58)
[2023-08-25] MEDS: Senokot S 8.6-50 MG TAB PO SCH (09:58)
[2023-08-25] MEDS ORDERED: HYDROcodone/Acetaminophen 5/325 mg Tablet ONE (10:31)
[2023-08-25] MEDS: HYDROcodone/Acetaminophen 5/325 mg Tablet PO PRN (10:34)
[2023-08-25] MEDS ORDERED: Potassium Chloride 20 MEQ TAB PO SCH (17:00)
[2023-08-25] MEDS: Acetaminophen 325 MG TAB PO PRN (21:23)
[2023-08-26 06:27] LABS: Anion Gap 11 mmol/L (10-20); BUN (Urea Nitrogen) 6 mg/dL (7.0-18.7); Calc. Creatinine Clearance 155 mL/min (70-130); Calcium 8.6 mg/dL (7.8-10.44); Carbon Dioxide 21 mmol/L (22-29); Chloride 110 mmol/L (98-107); Estimated GFR 124; Glucose 107 mg/dL (70-105); Magnesium 1.8 mg/dL (1.6-2.6); Potassium 3.5 mmol/L (3.5-5.1); Sodium 138 mmol/L (136-145)
[2023-08-26] MEDS: cefTRIAXone\\ROCEPHIN 1 GM in Sodium Chloride 0.9% 100 ML IVPB SCH (09:07)
[2023-08-26] MEDS: predniSONE 20 MG TAB PO SCH (09:31)
[2023-08-26 10:11] LABS: #Basophils Less than 0.03 10x3/uL (0.0-0.2); #Eosinphils Less than 0.03 10x3/uL (0.0-0.7); %Basophils 0.1 % (0.0-1.0); %Eosinophils 0.3 % (0.0-10.0); %Lymphocytes 16.4 % (21.0-51.0); %Monocytes 10.1 % (0.0-10.0); %Neutrophils 72.8 % (42.0-75.0); Hematocrit 29.8 % (36.0-47.0); Hemoglobin 9.7 g/dL (12.0-16.0); Mean Corpuscular HGB CONC 32.6 g/dL (32.0-36.0); Mean Corpuscular Hemoglobin 28.4 pg (27.0-31.0); Mean Corpuscular Volume 87.4 fL (78.0-98.0); Mean Platelet Volume 11.6 fL (7.4-10.4); Platelet Count 181 10x3/uL (130-400); RBC Distribution Width 14.4 % (11.5-14.5); Red Blood Cell (RBC) Count 3.41 mill/uL (4.20-5.40)
[2023-08-26 12:00] VITALS: BP 103/54; TEMP 97.5
== END 2023-08-26 16:45 | disposition home or self-care (01) ==
LOC: ERS 00:41 → ERHOLD 07:13 → 2NO 12:47
PROVIDERS: ADMIT Student in an Organized Health Care Education/Training Program; ATTEND Internal Medicine
DX: R10.9 Unspecified abdominal pain (principal); R06.02 Shortness of breath; F41.9 Anxiety disorder, unspecified; R00.0 Tachycardia, unspecified; E87.6 Hypokalemia; N39.0 Urinary tract infection, site not specified; I26.99 Other pulmonary embolism without acute cor pulmonale; E83.42 Hypomagnesemia; Z79.01 Long term (current) use of anticoagulants; Z79.899 Other long term (current) drug therapy; Z90.79 Acquired absence of other genital organ(s)
CPT/HCPCS: 36415; 71275; 74176; 80048; 80053; 81001; 81025; 83690; 83735; 83880; 84484; 85025; 87086; 93005; 93970; 96365; 96372; 96375; 96376; G0378; J0696; J1650; J2270; J2272; J2405; J3010; J3480; J7512; Q9967

== ENCOUNTER 2024-01-10 04:00 | Emergency (ER) | payer OTHER, SELFPAY ==
[2024-01-10] MEDS ORDERED: Ondansetron PF 4 MG/2 ML Vial ONE (04:23)
[2024-01-10] MEDS ORDERED: Morphine 4 MG/ML VIAL ONE (04:23)
[2024-01-10 05:18] LABS: #Basophils Less than 0.03 10x3/uL (0.0-0.2); #Eosinophils Less than 0.03 10x3/uL (0.0-0.7); %Basophils 0.1 % (0.0-1.0); %Lymphocytes 10.5 % (21.0-51.0); %Monocytes 5.9 % (0.0-10.0); %Neutrophils 83.4 % (42.0-75.0); Hematocrit 27.5 % (36.0-47.0); Hemoglobin 8.5 g/dL (12.0-16.0); Mean Corpuscular HGB CONC 30.9 g/dL (32.0-36.0); Mean Corpuscular Hemoglobin 24.1 pg (27.0-31.0); Mean Corpuscular Volume 77.9 fL (78.0-98.0); Mean Platelet Volume 11.1 fL (7.4-10.4); Platelet Count 261 10x3/uL (130-400); RBC Distribution Width 14.8 % (11.5-14.5); Red Blood Cell (RBC) Count 3.53 mill/uL (4.20-5.40)
[2024-01-10 05:22] LABS: BHCG - Serum POSITIVE (NEGATIVE); Pregs Control Background? CLEAR/WHITE (CLR/WHITE); Pregs Control Bar Appear? YES (CONTROL BAR)
[2024-01-10 05:43] LABS: ALT (SGPT) 24 U/L (8-55); AST (SGOT) 24 U/L (5-34); Albumin 4.2 g/dL (3.5-5.0); Alkaline Phosphatase 58 U/L (40-110); Anion Gap 17 mmol/L (10-20); BUN (Urea Nitrogen) 9 mg/dL (7.0-18.7); Calc. Creatinine Clearance 0 mL/min (70-130); Carbon Dioxide 16 mmol/L (22-29); Chloride 111 mmol/L (98-107); Estimated GFR 102; Globulin 3.1 g/dL (2.4-3.5); Glucose 104 mg/dL (70-105); Potassium 3.6 mmol/L (3.5-5.1); Protein, Total 7.3 g/dL (6.0-8.3); Sodium 140 mmol/L (136-145)
[2024-01-10 06:19] LABS: Troponin I Less than 0.010 ng/mL (< 0.028)
[2024-01-10] MEDS ORDERED: Acetaminophen 500 MG TAB ONE (08:05)
[2024-01-10 08:10] LABS: Acetaminophen Less than 10 mcg/mL (Less than 10); Alcohol 133.9 mg/dL (Less than 10); Salicylate Less than 8.0 mg/dL (Less than 8.0)
[2024-01-10 08:12] LABS: #Basophils Less than 0.03 10x3/uL (0.0-0.2); #Eosinophils Less than 0.03 10x3/uL (0.0-0.7); %Basophils 0.1 % (0.0-1.0); %Lymphocytes 16.1 % (21.0-51.0); %Monocytes 6.9 % (0.0-10.0); %Neutrophils 76.6 % (42.0-75.0); Hemoglobin 7.7 g/dL (12.0-16.0); Mean Corpuscular HGB CONC 29.6 g/dL (32.0-36.0); Mean Corpuscular Hemoglobin 23.8 pg (27.0-31.0); Mean Corpuscular Volume 80.2 fL (78.0-98.0); Mean Platelet Volume 10.7 fL (7.4-10.4); Platelet Count 211 10x3/uL (130-400); RBC Distribution Width 14.7 % (11.5-14.5); Red Blood Cell (RBC) Count 3.24 mill/uL (4.20-5.40)
[2024-01-10 08:59] LABS: INR-International Normal Ratio 1.3; PTT 33.9 sec (22.9-36.1); Prothrombin Time 16.6 sec (12.0-14.7)
[2024-01-10 10:51] LABS: Lactic Acid 2.86 mmol/L (0.5-2.2)
[2024-01-10] MEDS ORDERED: fentaNYL 50 mcg/mL 1 mL Vial ONE (11:14)
[2024-01-10 12:13] LABS: #Basophils Less than 0.03 10x3/uL (0.0-0.2); #Eosinophils Less than 0.03 10x3/uL (0.0-0.7); %Basophils 0.1 % (0.0-1.0); %Eosinophils 0.1 % (0.0-10.0); %Lymphocytes 18.3 % (21.0-51.0); %Monocytes 8.1 % (0.0-10.0); Mean Corpuscular HGB CONC 29.6 g/dL (32.0-36.0); Mean Corpuscular Hemoglobin 23.5 pg (27.0-31.0); Mean Corpuscular Volume 79.2 fL (78.0-98.0); Mean Platelet Volume 10.8 fL (7.4-10.4); Platelet Count 236 10x3/uL (130-400); RBC Distribution Width 14.7 % (11.5-14.5); Red Blood Cell (RBC) Count 3.41 mill/uL (4.20-5.40)
[2024-01-10] MEDS ORDERED: Iopamidol-370 76% 500 ML MDV (1 ML CHARGE) ONE (14:06)
== END 2024-01-10 13:35 | disposition home or self-care (01) ==
LOC: EEVIPCON 04:00 → ERS 04:00
DX: S80.212A Abrasion, left knee, initial encounter (principal); S80.211A Abrasion, right knee, initial encounter; S00.81XA Abrasion of other part of head, initial encounter; F12.10 Cannabis abuse, uncomplicated; W19.XXXA Unspecified fall, initial encounter; Z79.01 Long term (current) use of anticoagulants
CPT/HCPCS: 36415; 70450; 71045; 71260; 72125; 74177; 80053; 80307; 83605; 84484; 84702; 84703; 85025; 85379; 85610; 85730; 86850; 86900; 86901; 87040; 93005; 96374; 96375; J2272; J2405; J3010; Q9967